=== PATIENT | male | born 1940 | race Caucasian/White ===

== ENCOUNTER → 2017-02-05 | Outpatient (CLI) | payer MEDICARE, OTHER ==
[~2017-02-05] MED LIST: BETA1TAB24 PO; BICA50TA2; BIMA2.5D6 OP; BONE PO; BORO1POW PO; CHOL500019 PO; GREE1CAP PO; IOHEXOL 300 MG/ML 100ml INJECTION ONE; LACT1CAP66 PO; LISI-126 PO; LYCO15CA PO; NATURAL PROSTATE PO; NORMAL SALINE 100 ML ONE; SALINE FLUSH 10ml SYRINGE ONE; TIMO5DRO7 LEFT EYE; TRIA1TAB PO; [UNRECOGNIZED DRUG - CODE] PO; [UNRECOGNIZED DRUG - OTHER] PO; [UNRECOGNIZED DRUG - OTHER] PO; [UNRECOGNIZED DRUG - OTHER] PO; [UNRECOGNIZED DRUG - OTHER] PO
--- NOTE | 2017-02-05 15:02 | DI ---
Indication: ITS.REASON: C61 PROSTATE CA PROCEDURE: CT CHEST/ABD/PELVIS WC: Encounter: Subsequent Comparison: CT chest, abdomen and pelvis dated July 13, 2016 and nuclear medicine bone scan from that date Technique: Axial CT images were performed through the chest, abdomen and pelvis after the administration of intravenous contrast. Coronal and sagittal two-dimensional reformats. Automated Exposure Control and Iterative Reconstruction dose reducing techniques were utilized. Contrast: Omnipaque 300 100 mL Findings: Chest: Lungs are unchanged. No new pulmonary nodule or mass. No pneumonia, pleural effusion or pneumothorax. The central airways are patent. No axillary or mediastinal adenopathy. Heart and great vessels are unchanged. No pericardial effusion. Abdomen/pelvis: Stable appearance of the liver with numerous cysts. No enhancing liver masses or bile duct dilatation. The gallbladder shows multiple small gallstones in the area of the gallbladder neck with distention. This is also unchanged. The spleen, pancreas and adrenal glands are within normal limits. The kidneys are unchanged. No abdominal or pelvic lymphadenopathy. Bladder is normal. Prostate is moderately enlarged. No free fluid. No evidence of a bowel obstruction. Appendix is normal. Bone windows again show a large sclerotic metastatic lesion in the posterior left proximal femur with smaller punctate sclerotic foci in the pelvis and right femoral neck. No definite new lytic or blastic osseous lesions appreciated. Stable small sclerotic foci in the bilateral eighth and right 10th posterior ribs. Prominent sclerotic focus in the right fourth rib is unchanged. Small stable lesion also noted in the inferior endplate of T1. Impression: Stable exam without evidence of new or worsening metastatic disease in the chest, abdomen or pelvis. .
--- NOTE | 2017-02-05 16:30 | DI ---
Indication: ITS.REASON: C61 PROSTATE CA PROCEDURE: NM BONE SCAN, WHOLE BODY: Encounter: Subsequent Comparison: Bone scan dated July 13, [address] chest, abdomen and pelvis from today Technique: 26.6 mCi of Tc-99m MDP was administered intravenously. Anterior and posterior planar whole-body and spot images were obtained. FINDINGS: The scan demonstrates the expected normal biodistribution for the radiotracer. There is probable degenerative uptake seen in the shoulders and knees along with the right midfoot. Degenerative uptake in the cervical spine bilaterally and in the L2-L3 region of the lumbar spine. Metastatic uptake in the left femoral neck area is more intense on today's scan but stable in size. Small areas of uptake in the right fourth and fifth lateral ribs are unchanged. Posterior rib lesions seen on CT do not have corresponding uptake on the bone scan. No new areas of tracer accumulation identified. IMPRESSION: Stable bone scan. .
== END ==
LOC: IMA 12:37
PROVIDERS: ATTEND Internal Medicine Hematology & Oncology
DX: C61 Malignant neoplasm of prostate (principal); C79.51 Secondary malignant neoplasm of bone
CPT/HCPCS: 71260; 74177; 78306; A9503; J7050; Q9967